=== PATIENT | female | born 1950 | race Two or more races ===

== ENCOUNTER 2018-03-08 05:12 | Day surgery (SDC) | payer MEDICARE, OTHER ==
[2018-03-08] MEDS ORDERED: LIDOCAINE HCL/PF 1% 30 ML SDV ONE (06:35)
[2018-03-08] MEDS ORDERED: ANESTHESIA TRAY IN PYXIS 1 EA TRAY MC ONE (06:35)
[2018-03-08] MEDS ORDERED: BUPIVACAINE 0.25% 75 MG/30 ML VIAL ONE (06:35)
[2018-03-08] MEDS ORDERED: HYDROMORPHONE INJ 2 MG/ML DISP.SYRIN ONE (06:56)
[2018-03-08] MEDS ORDERED: CLINDAMYCIN 900 MG/6 ML VIAL ONE (06:57)
== END 2018-03-08 09:00 | disposition home or self-care (01) ==
LOC: DS 05:12
PROVIDERS: ATTEND Specialist
DX: S52.021A Displaced fracture of olecranon process without intraarticular extension of right ulna, initial encounter for closed fracture (principal); X58.XXXA Exposure to other specified factors, initial encounter; Y93.89 Activity, other specified; Y92.89 Other specified places as the place of occurrence of the external cause; Y99.8 Other external cause status; Z88.1 Allergy status to other antibiotic agents; Z88.8 Allergy status to other drugs, medicaments and biological substances; Z79.899 Other long term (current) drug therapy
CPT/HCPCS: A4565; A6402; J1100; J1170; J2405; J2704; J3490; J7120